=== PATIENT | female | born 1995 | race African-American/Black ===

== ENCOUNTER 2021-08-26 01:54 | Emergency (ER) | payer OTHER, SELFPAY ==
--- NOTE | ~2021-08-26 | US_ITS ---
EXAMINATION: US OB <=14 wk fetus w TV DATE: 08/26/2021 05:09 INDICATION: Vaginal bleeding during early TECHNIQUE: Real-time pelvic ultrasound utilizing both a transvaginal and transabdominal probe was pe rformed. The interpreting radiologist was not present for the study. COMPARISON: None FINDINGS: The uterus measures 9.3 x 7.3 x 6.7 cm. There is a likely intrauterine gestational sac with double d ecidua sign but no discernible yolk sac or pole yet apparent. The mean sac diameter measures 1. 4 cm, which correlates with an estimated gestational age of 6 weeks and 2 days. The right ovary measures 2.7 x 1.4 x 2.6 cm. The left ovary measures 3.1 x 2.6 x 4.0 cm. There are a couple anechoic cysts/follicles measuring up to 1.6 similar in the left ovary. Vascular flow identifi ed in both ovaries on color Doppler. There is no free fluid in the pelvis. IMPRESSION: 1. Single likely intrauterine gestational sac with double decidua sign but no yolk sac or pole yet apparent which could be due to either early stage of or failed . 2. Gestational age by ultrasound of 6 weeks 2 day(s) +/- 4 day(s) with ultrasound estimated date of delivery (JJ) of 04/19/2022. Reviewed, dictated and finalized at location A. IMPRESSION: 1. Single likely intrauterine gestational sac with double decidua sign but no y olk sac or pole yet apparent which could be due to either early stage of or failed . 2. Gestational age by ultrasound of 6 weeks 2 day(s) +/- 4 day(s) with ultraso und estimated date of delivery (JJ) of 04/19/2022.
--- NOTE | 2021-08-26 04:55 | ED.PREGNANCY ---
HPI - History of Present Illness HPI Narrative: Patient is a 26-year-old currently 8 weeks dated by last menstrual period June 23 presenting to the emergency department for evaluation of vaginal bleeding. Patient believes she is approximately 8 weeks , in the past has followed with Dr. Antonio Flores in [place] for her obstetrical care. Patient denies any current or recent OB visits for this established . Patient with history of spontaneous in the past. She has 2 living children. She reports onset of vaginal spotting with some scant brown discharge today. She denies pelvic pain, contraction-like pain, cramping. She denies loss of fluids. She denies fever, chills, nausea or vomiting. She denies recent vaginal intercourse. No recent fall or trauma. Patient is unsure of her blood type. Review of Systems Review of Systems: CONSTITUTIONAL: Denies fever CARDIOVASCULAR: Denies chest pain RESPIRATORY: Denies cough or dyspnea. GASTROINTESTINAL: Denies abdominal pain : Reports vaginal spotting SKIN: Denies rash MUSCULOSKELETAL: Denies back pain NEUROLOGIC: Denies headache [facility] Past Medical History Medical History (Updated 08/26/21 @ 05:59 by Mary Foreman MD) Vaginal delivery Social History Social History (Updated 08/26/21 @ 04:57 by Mary Foreman MD) Smoking status: Never smoker Alcohol intake: never Substance use: never Living arrangements: with family Gender identity (if verbalized by the patient): Female Exam Narrative: GENERAL: Awake, alert, conversant HEAD: Normocephalic, atraumatic. EYES: PERRLA and EOMI. ENT: Nares clear, no rhinorrhea or epistaxis. Mucous membranes moist. NECK: Supple. CHEST: No respiratory distress, breathing even and non labored HEART: Regular rate, sinus rhythm ABDOMEN:Non distended, non tender : Labia majora and minora normal without lesions. Vagina with scantblood. No cervical motion tenderness. No adnexal tenderness or fullness bilaterally. No mucoid discharge present. EXTREMITIES: Normal range of motion. No edema. SKIN: Warm, dry, no rash. NEURO:No focal deficits. Alert and oriented x3 MDM - OB/Uterine Contractions MDM Narrative Medical decision making narrative: Patient presenting for evaluation of vaginal bleeding in early . At the time of assessment, ABCs are intact and vital signs are stable. Patient with mild anemia but has history of chronic iron deficiency anemia. She is borderline hypokalemic. Other laboratory results are reassuring. UA not consistent with UTI. Pelvic exam does not show any brisk bleeding, discharge be consistent with cervicitis. No significant pain on exam. Patient with a elevated beta-hCG, reviewed ultrasound, measuring 6 weeks or slightly behind for dates. There is concern for failed based on ultrasound which I communicated to patient. Given patient is stable without signs of ectopic , patient advised to follow-up with her PAY AGENT for repeat beta-hCG testing, ultrasound and ultimate follow-up. Patient was given strict return precautions and discharged home in stable condition Lab Data Result diagrams: 08/26/21 03:04 08/26/21 03:04 Labs: Lab Results 08/26/21 08/26/21 08/26/21 Range/Units 02:46 03:02 03:04 WBC 5.4 (4.5-10.0) K/mm3 RBC 4.33 (4.2-5.4) M/mm3 Hgb 11.4 L (12.0-15.0) g/dL Hct 34.8 L (37.0-47.0) % MCV 80.4 (80-100) fl MCH 26.3 (26-34) pg MCHC 32.8 (32-36) g/dl RDW 14.6 H (11.5-14.5) % Plt Count 235 (150-375) k/mm3 MPV 11.0 H (7.4-10.4) fl Immature Gran % (Auto) 0.4 (0-0.5) % Neut % (Auto) 48.6 (45.5-73.1) % Lymph % (Auto) 36.6 (18.3-44.2) % Buchanan % (Auto) 12.3 H (2.6-8.5) % Eos % (Auto) 1.5 (0-4.4) % Baso % (Auto) 0.6 (0.2-1.2) % Lymph # (Auto) 1.97 (0.9-3.2) K/mm3 Buchanan # (Auto) 0.7 H (0.1-0.6) K/mm3 Eos # (Auto) 0.
[2021-08-26 05:57] LABS: Chloride 104 mmol/L (98-107); Potassium 3.2 mmol/L (3.4-5.0); Sodium 137 mmol/L (137-145)
[2021-08-26 05:58] LABS: Alanine Aminotransferase 18 U/L (6-35); Albumin Level 3.8 g/dL (3.5-5.1); Alkaline Phosphatase 44 U/L (38-126); Anion Gap 9 mmol/L (8-16); Aspartate Amino Transferase 22 U/L (14-36); Bilirubin,Total 0.5 mg/dL (0.2-1.3); Blood Urea Nitrogen 9 mg/dL (7-17); Calcium 8.6 mg/dL (8.4-10.2); Carbon Dioxide 24 mmol/L (22-30); Estimated Glomerular Filt Rate > 60; Glucose 90 mg/dL (65-110)
[2021-08-26 06:00] LABS: Hemoglobin 11.4 g/dL (12.0-15.0); INR 1.1; Prothrombin Time 14.2 Seconds (11.1-14.7); Red Blood Count 4.33 M/mm3 (4.2-5.4); White Blood Count 5.4 K/mm3 (4.5-10.0)
[2021-08-26 06:01] LABS: Hematocrit 34.8 % (37.0-47.0); Immature Granulocyte Percent A 0.4 % (0-0.5); Lymphocytes Percent Auto 36.6 % (18.3-44.2); Mean Corpuscular HGB Conc 32.8 g/dl (32-36); Mean Corpuscular Hemoglobin 26.3 pg (26-34); Mean Corpuscular Volume 80.4 fl (80-100); Monocytes Percent Auto 12.3 % (2.6-8.5); Neutrophils Percent Auto 48.6 % (45.5-73.1); Platelet Count Result 235 k/mm3 (150-375); Red Cell Distribution Width 14.6 % (11.5-14.5)
[2021-08-26 06:02] LABS: Basophils Percent Auto 0.6 % (0.2-1.2); Eosinophils Absolute Auto 0.1 K/mm3 (0-0.3); Eosinophils Percent Auto 1.5 % (0-4.4); Immature Granulocyte Absolute 0.02 K/mm3 (0.00-0.031); Lymphocytes Absolute Auto 1.97 K/mm3 (0.9-3.2); Monocytes Absolute Auto 0.7 K/mm3 (0.1-0.6); Neutrophils Absolute Auto 2.6 K/mm3 (1.3-6.7)
[2021-08-26 06:05] LABS: Appearance Urine Clear (Clear); Color Urine Yellow (Yellow); Specific Grav Ur 1.025 (1.001-1.035); pH Urine 5.5 (5.0-9.0)
[2021-08-26 06:05] LABS: Monoscreen Negative (Negative); Negative Monotest Control Negative (Negative); Positive Monotest Control Positive (Positive)
[2021-08-26 06:06] LABS: Add Urine Microscopic? YES; Bilirubin Urine Negative (Negative); Blood Urine 3+ (Negative); Glucose Urine UA Negative (Negative); Ketones Urine Negative (Negative); Leukocyte Esterase Ur Negative LEU/UL (NEGATIVE); Nitrate Urine Negative (Negative); Protein Urine Negative (Negative)
[2021-08-26 06:09] LABS: RBC Urine 0-2 /hpf (0-2); Squamous Epithelial Cell Urine Moderate /hpf (Few)
[2021-08-26 06:10] LABS: Mucus Urine Heavy /lpf
--- NOTE | 2021-08-26 07:15 | PC.NURSE ---
Patient report received from CHAKA Centeno. All questions answered and care of patient assumed.
[2021-08-26 07:56] VITALS: BP 97/66; PULSE 78; RESP 16; O2SAT 98
== END 2021-08-26 07:58 | disposition home or self-care (01) ==
PROVIDERS: Emergency Provider Emergency Medicine
DX: O20.9 Hemorrhage in early pregnancy, unspecified (principal); Z3A.08 8 weeks gestation of pregnancy
CPT/HCPCS: 36415; 76801; 76817; 80053; 81001; 84443; 84702; 85025; 85461; 85610; 86308; 99284

== ENCOUNTER 2022-05-30 16:54 | Emergency (ER) | payer OTHER, SELFPAY ==
[2022-05-30 17:19] VITALS: BP 100/67; PULSE 75; RESP 12; TEMP 36.6; O2SAT 100
[2022-05-30 20:03] VITALS: BP 117/65; PULSE 77; RESP 20; O2SAT 100
--- NOTE | 2022-05-30 23:05 | PC.NURSE ---
FHT 156
[2022-05-30 23:08] LABS: Basophils Percent Auto 0.8 % (0.2-1.2); Eosinophils Absolute Auto 0.1 K/mm3 (0-0.3); Eosinophils Percent Auto 1.2 % (0-4.4); Hematocrit 39.8 % (37.0-47.0); Hemoglobin 12.7 g/dL (12.0-15.0); Immature Granulocyte Absolute 0.01 K/mm3 (0.00-0.031); Immature Granulocyte Percent A 0.2 % (0-0.5); Lymphocytes Absolute Auto 1.99 K/mm3 (0.9-3.2); Lymphocytes Percent Auto 40.2 % (18.3-44.2); Mean Corpuscular HGB Conc 31.9 g/dl (32-36); Mean Corpuscular Hemoglobin 26.3 pg (26-34); Mean Corpuscular Volume 82.6 fl (80-100); Mean Platelet Volume 10.9 fl (7.4-10.4); Monocytes Absolute Auto 0.5 K/mm3 (0.1-0.6); Monocytes Percent Auto 10.3 % (2.6-8.5); Neutrophils Absolute Auto 2.3 K/mm3 (1.3-6.7); Neutrophils Percent Auto 47.3 % (45.5-73.1); Platelet Count Result 229 k/mm3 (150-375); Red Blood Count 4.82 M/mm3 (4.2-5.4); Red Cell Distribution Width 14.4 % (11.5-14.5)
--- NOTE | 2022-05-30 23:37 | ED.FEMALEGU ---
HPI - Female Genitourinary General Chief complaint: Vaginal Bleeding <Benito Wang PA-C - Last Filed: 05/31/22 03:03> Stated complaint: 2 mos , bleeding <Benito Wang PA-C - Last Filed: 05/31/22 03:03> Time Seen by Provider: 05/30/22 22:41 <Benito Wang PA-C - Last Filed: 05/31/22 03:03> History of Present Illness HPI Narrative: This is a 27-year-old female presents to the ED with chief complaint of vaginal spotting. States she is over 10 weeks . She was seen at her [facility] [facility], Dr. Harding, on May 17. States she had an ultrasound that point that was normal. Patient states she was using the restroom and something did not feel right so she wiped and saw blood on the toilet paper. 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 This would be her sixth . She denies vaginal pain, discharge, urinary symptoms. Denies pelvic pain, abdominal pain or cramping, nausea, vomiting. Denies fever or chills. A3 <Benito Wang PA-C - Last Filed: 05/31/22 03:03> Review of Systems Review of Systems: CONSTITUTIONAL: Denies fever, chills, or sweats. EYES: Denies visual changes, redness, or discharge. ENT: Denies rhinorrhea, congestion, sore throat, or otalgia. CARDIOVASCULAR: Denies chest pain, palpitations, or edema. RESPIRATORY: Denies cough or dyspnea. GASTROINTESTINAL: Denies abdominal pain, nausea, vomiting, or diarrhea. GENITOURINARY: Endorses vaginal spotting. Denies dysuria or hematuria. SKIN: Denies rash or itching. MUSCULOSKELETAL: Denies back pain, joint pain, or myalgia. NEUROLOGIC: Denies headache, numbness, dizziness, or weakness. PSYCHIATRIC: Denies anxiety or depression. <Benito Wang PA-C - Last Filed: 05/31/22 03:03> [facility] Past Medical History Medical History: Medical History (Updated 06/01/22 @ 00:04 by Background Daemon) Vaginal delivery <Benito Wang PA-C - Last Filed: 05/31/22 03:03> Social History Social History: Social History (Updated 08/26/21 @ 04:57 by Mary Foreman MD) Smoking status: Never smoker Alcohol intake: never Substance use: never Living arrangements: with family Gender identity (if verbalized by the patient): Female <Benito Wang PA-C - Last Filed: 05/31/22 03:03> Exam Narrative: GENERAL: Well-appearing, well-nourished, and in no acute distress. HEAD: Normocephalic, atraumatic. EYES: PERRLA and EOMI. ENT: Nares clear, no rhinorrhea or epistaxis. Mucous membranes moist. Oropharynx without tonsillar hypertrophy exudate or other lesions. NECK: Supple. No adenopathy or masses. CHEST: No respiratory distress. Clear to auscultation. No wheezes rales or rhonchi HEART: Regular rate and rhythm. No murmur heard. Normal peripheral pulses. ABDOMEN: Soft, nontender, nondistended, normal active bowel sounds. EXTREMITIES: Normal range of motion. No edema. SKIN: Warm, dry, no rash. NEURO: Alert and oriented x3. No focal deficits. PSYCH: Normal mood and affect. Pelvic exam done with female RN roof truss detailer present: Cervical os closed. No omer blood appreciated in the vaginal vault No tenderness during speculum exam. <Benito Wang PA-C - Last Filed: 05/31/22 03:03> Course Course Emergency Course: RN reports FHT at 150 Dr. Jenkins () able to US and visualize pole IUP with cardiac activity <Benito Wang PA-C - Last Filed: 05/31/22 03:03> AP[employer]S SALES REPRESENTATIVE/PA Physician Supervision I personally evaluated and examined the patient in conjunction with the APC and agree with the assessment, treatment plan and disposition of the patient as recorded by the APC. Bedside ultrasound performed by me. A single intrauterine with cardiac activity is noted. There is no noted free fluid in the abdomen <Sahil Jenkins MD - Last Filed: 06/01/22 04:10> Vital Signs Vital signs: Vital Signs Temperature 97.9 F 05/30/22 17:19 Pulse Rate 75 05/30/22 17:19 Respiratory Rate 12 03
[2022-05-31 02:02] VITALS: BP 115/75; PULSE 68; RESP 16; O2SAT 100
== END 2022-05-31 01:50 | disposition home or self-care (01) ==
PROVIDERS: Emergency Provider Physician Assistant
DX: O20.0 Threatened abortion (principal); Z3A.10 10 weeks gestation of pregnancy
CPT/HCPCS: 36415; 84702; 85025; 85461; 86850; 86900; 86901; 99284